=== PATIENT | female | born 1945 | race Caucasian/White ===

== ENCOUNTER → 2016-05-30 | Outpatient (CLI) | payer OTHER | LOC: BRMIMAGING 13:10 | PROVIDERS: ATTEND Internal Medicine | DX: M06.861 Other specified rheumatoid arthritis, right knee (principal); M06.862 Other specified rheumatoid arthritis, left knee; M06.841 Other specified rheumatoid arthritis, right hand; M06.842 Other specified rheumatoid arthritis, left hand; M06.872 Other specified rheumatoid arthritis, left ankle and foot; M06.871 Other specified rheumatoid arthritis, right ankle and foot; M17.0 Bilateral primary osteoarthritis of knee; M19.041 Primary osteoarthritis, right hand; M19.042 Primary osteoarthritis, left hand; M19.071 Primary osteoarthritis, right ankle and foot; M19.072 Primary osteoarthritis, left ankle and foot | CPT/HCPCS: 73130-PO; 73562-PO; 73630-PO ==